=== PATIENT | male | born 1990 | race Caucasian/White ===

== ENCOUNTER 2018-04-05 01:02 | Emergency (ER) | payer BC ==
[~2018-04-05] VITALS: Ht 175.3 cm; Wt 78.9 kg
[2018-04-05 03:58] VITALS: BP 141/95
== END 2018-04-05 03:58 | disposition home or self-care (01) ==
LOC: ED 01:02
DX: Z11.4 Encounter for screening for human immunodeficiency virus [HIV] (principal); Z91.011 Allergy to milk products